=== PATIENT | female | born 1970 ===

== ENCOUNTER 2021-09-06 21:41 | Emergency (ER) | payer MEDICAID ==
[~2021-09-06] VITALS: Ht 167.6 cm; Wt 47.6 kg
--- NOTE | 2021-09-06 21:50 | NUR ---
Patient BIB [facility] for c/o intermittent CP radiating to left shoulder and arm 3 hours [employer]. Patient is A/Ox4, not in distress
[2021-09-06] MEDS ORDERED: LORA0.5T48 PO (22:23)
[2021-09-06] MEDS ORDERED: LORAZEPAM 0.5 MG TABLET PO ONE (22:30)
[2021-09-06] MEDS ORDERED: ASPIRIN 81 MG TAB.CHEW PO ONE (22:30)
[2021-09-06] MEDS ORDERED: NITROGLYCERIN OINT 1 GM PACKET TP ONE ×2 (22:30→22:32)
[2021-09-06] MEDS ORDERED: ASPIRIN 81 MG TAB.CHEW ONE (22:31)
[2021-09-06] MEDS ORDERED: LORAZEPAM 1 MG TABLET ONE (22:32)
[2021-09-06] MEDS ORDERED: ONDANSETRON 4 MG/2 ML VIAL ONE (22:44)
[2021-09-06] MEDS ORDERED: ONDANSETRON 4 MG/2 ML VIAL IV ONE (22:45)
[2021-09-06] MEDS ORDERED: IV D5/ 0.9% NACL 1,000 ML IV ONE (22:45)
[2021-09-06 22:48] LABS: HEMATOCRIT 35.4 % (31.2-41.9); MEAN CORPUSCULAR HEMOGLOBIN 33.7 uug (24.7-32.8); PLATELET COUNT (AUTO) 151 K/uL (179-408)
[2021-09-06 22:57] LABS: CARBON DIOXIDE 28 mmol/L (21-32); CHLORIDE 94 mmol/L (98-107); CREATININE 0.7 mg/dL (0.6-1.3); GLUCOSE 101 mg/dL (74-106); POTASSIUM 3.9 mmol/L (3.5-5.1); UREA NITROGEN, BLOOD 8 mg/dL (7-18)
[2021-09-06 23:10] LABS: ALANINE AMINOTRANSFERASE 33 U/L (14-59); ALKALINE PHOSPHATASE 77 U/L (50-136); ASPARTATE AMINOTRANSFERASE 33 U/L (15-37); BILIRUBIN,DIRECT 0.3 mg/dL (0.0-0.2)
[2021-09-07] MEDS ORDERED: METOPROLOL TARTRATE 5 MG/5 ML VIAL IVP ONE ×2 (00:30→00:33)
[2021-09-07 00:41] LABS: *BILIRUBIN,URIN NEGATIVE (NEGATIVE); *BLOOD, URINE NEGATIVE (NEGATIVE); *CLARITY,URINE CLEAR (CLEAR); *COLOR,URINE YELLOW (YELLOW); *KETONES,URINE 1+ (NEGATIVE); LEUKOCYTE ESTERASE ,URINE NEGATIVE (NEGATIVE); NITRITE, URINE NEGATIVE (NEGATIVE); UGLUCOSE 1+ (NEGATIVE)
[2021-09-07 00:54] LABS: *AMPHETAMINE, URINE NEGATIVE (NEGATIVE); *CANNABINOID, URINE NEGATIVE (NEGATIVE); *COCCAINE, URINE NEGATIVE (NEGATIVE); *OPIATE, URINE NEGATIVE (NEGATIVE); *PHENCYCLIDINE SCREEN,URINE NEGATIVE (NEGATIVE)
[2021-09-07] MEDS ORDERED: HYDR-4209 PO (01:16)
--- NOTE | 2021-09-07 02:00 | NUR ---
Patient discharged to home in stable condition. Written and verbal after care instructions given. Patient verbalizes understanding of instructions. Stressed follow up or return to ER for worsening s/s. Patient is A/Ox4, not in distress, able to walk with steady gait
[2021-09-07 02:10] VITALS: BP 126/86
== END 2021-09-07 02:00 | disposition home or self-care (01) ==
LOC: ER 21:46
DX: R07.9 Chest pain, unspecified (principal); R00.0 Tachycardia, unspecified; R94.31 Abnormal electrocardiogram [ECG] [EKG]; F41.9 Anxiety disorder, unspecified; Z79.899 Other long term (current) drug therapy
CPT/HCPCS: 36415 ×2; 71045; 80048; 80076; 80307; 81003; 83880; 84484 ×2; 85025; 85379; 85730; 93005; 96361; 96374; 99285; J2405; J3490; J7042; A4663